=== PATIENT | female | born 1970 | race Two or more races ===

== ENCOUNTER 2019-05-14 15:54 | Inpatient (IN) | payer OTHER ==
[~2019-05-14] VITALS: Ht 152.4 cm; Wt 73.9 kg
[~2019-05-14 15:54] MED LIST: MAXFE CAPLET1 EACH PO; MAXIFED TABLET1 EACH PO
== END 2019-05-20 12:30 | disposition home or self-care (01) | DRG 743 ==
LOC: OB/GYN 05-18 08:30 → O/R 05-18 14:07 → OB/GYN 05-18 19:29
PROVIDERS: ADMIT Obstetrics & Gynecology
PROC: 0UT20ZZ Resection of Bilateral Ovaries, Open Approach (ICD-10-PCS; 2019-05-18)
PROC: 0DNW0ZZ Release Peritoneum, Open Approach (ICD-10-PCS; 2019-05-18)
PROC: 0UT70ZZ Resection of Bilateral Fallopian Tubes, Open Approach (ICD-10-PCS; 2019-05-18)
PROC: 0UT90ZL Resection of Uterus, Supracervical, Open Approach (ICD-10-PCS; principal; 2019-05-18 08:30)
DX: N80.0 Endometriosis of uterus (principal); N73.6 Female pelvic peritoneal adhesions (postinfective)